=== PATIENT | female | born 1990 | race Caucasian/White ===

== ENCOUNTER 2024-08-17 18:23 | Emergency (ER) | payer MEDICAID ==
[~2024-08-17] VITALS: Ht 167.6 cm; Wt 68.0 kg
[2024-08-17 18:36] VITALS: BP 101/64; TEMP 98.4
[2024-08-17] MEDS ORDERED: KETOROLAC TROMETHAMINE 15 MG/ML VIAL ONE (20:25)
[2024-08-17] MEDS: KETOROLAC TROMETHAMINE 15 MG/ML VIAL IM ONE (20:29)
[2024-08-17 21:00] VITALS: O2SAT 98
[2024-08-17] MEDS ORDERED: IBUP-1490 PO (21:00)
== END 2024-08-17 21:13 | disposition home or self-care (01) ==
LOC: ER 18:39
DX: M54.50 Low back pain, unspecified (principal); E86.0 Dehydration; Z79.899 Other long term (current) drug therapy
CPT/HCPCS: 99283; 96372; J1885

== ENCOUNTER 2025-01-23 05:49 | Emergency (ER) | payer BC, MEDICAID ==
[~2025-01-23] VITALS: Ht 167.6 cm; Wt 68.0 kg
[~2025-01-23 05:49] MED LIST: IBUP-1490 PO
[2025-01-23] MEDS ORDERED: IBUPROFEN 600 MG TABLET ONE (06:59)
[2025-01-23] MEDS: IV NS 0.9% 1,000 ML BAG IV ONE (07:08)
[2025-01-23] MEDS: IBUPROFEN 600 MG TABLET PO ONE (07:08)
[2025-01-23 07:14] LABS: BASOPHILS % (AUTO) 0.3 % (0.0-2.0); EOSINOPHILS # (AUTO) 0.1 K/uL (0.0-0.7); EOSINOPHILS % (AUTO) 1.4 % (0.0-6.0); HEMATOCRIT 39 % (33-45); HEMOGLOBIN 13.6 g/dL (11.5-14.8); LYMPHOCYTES # (AUTO) 1.3 K/uL (0.8-4.8); LYMPHOCYTES % (AUTO) 11.8 % (20.0-44.0); MEAN CORPUSCULAR HEMOGLOBIN 31 PG (26.0-33.0); MEAN CORPUSCULAR HGB CONC 35 g/dl (31.0-36.0); MEAN CORPUSCULAR VOLUME 87 fL (82-100); MONOCYTES # (AUTO) 0.7 K/uL (0.1-1.30); MONOCYTES % (AUTO) 6.9 % (2.0-12.0); NEUTROPHILS # (AUTO) 8.6 K/uL (1.8-8.9); NEUTROPHILS % (AUTO) 79.6 % (43.0-81.0); PLATELET COUNT (AUTO) 266 K/uL (150-450); RED BLOOD CELL COUNT(AUTO) 4.46 MIL/uL (4.0-5.2); RED CELL DISTRIBUTION WIDTH 12.8 % (11.5-15.0); WHITE BLOOD COUNT (AUTO) 10.7 K/uL (4.3-11.0)
[2025-01-23 07:24] LABS: CALCIUM, SERUM 8.9 mg/dL (8.5-10.1); CREATININE 0.7 mg/dL (0.6-1.3); POTASSIUM 4.4 mmol/L (3.5-5.1)
[2025-01-23 09:07] VITALS: BP 110/60; TEMP 98.7; O2SAT 99
== END 2025-01-23 09:17 | disposition home or self-care (01) ==
LOC: ER 05:54
DX: J40 Bronchitis, not specified as acute or chronic (principal); Z87.01 Personal history of pneumonia (recurrent); Z79.899 Other long term (current) drug therapy; Z20.822 Contact with and (suspected) exposure to COVID-19
CPT/HCPCS: 99284; 96360; 71045; 87426; 87804 ×2; 84145; 85025; 80048; 87070; 36415; 87880; J7030; 86403-TC